=== PATIENT | female | born 1995 | race Native Hawaiian/Other Pacific Islander ===

== ENCOUNTER 2022-02-15 15:32 | Outpatient (CLI) | payer OTHER, SELFPAY | END 2022-02-15 15:33 | disposition home or self-care (01) | LOC: AMB 04-04 09:36 | PROVIDERS: Visit Provider Family Medicine | DX: S39.91XA Unspecified injury of abdomen, initial encounter (principal); S19.9XXA Unspecified injury of neck, initial encounter; S29.9XXA Unspecified injury of thorax, initial encounter; V43.62XA Car passenger injured in collision with other type car in traffic accident, initial encounter; Y92.413 State road as the place of occurrence of the external cause | CPT/HCPCS: A0425; A0429 ==

== ENCOUNTER 2022-02-15 15:51 | Emergency (ER) | payer OTHER, SELFPAY ==
[2022-02-15] VITALS (12 sets, daily range): BP systolic 93–147; BP diastolic 57–74; PULSE 96–126; RESP 12–24; TEMP 37.4; O2SAT 97–100; BMI 33.3
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
[2022-02-15 16:15] LABS: Basophils Absolute Auto 0.03 K/uL (0.00-0.30); Basophils Percent Auto 0.4 % (0.0-3.0); Eosinophils Absolute Auto 0.15 K/uL (0.00-0.50); Eosinophils Percent Auto 1.8 % (0.0-7.0); Hematocrit 33.8 % (33.0-51.0); Hemoglobin* 9.9 gm/dL (12.0-16.0); Lymphocytes Absolute Auto 2.35 K/uL (0.90-2.90); Lymphocytes Percent Auto 27.6 % (20-44); Mean Corpuscular HGB Conc 29 gm/dL (32-36); Mean Corpuscular Hemoglobin 20 pg (26-34); Mean Corpuscular Volume 68 fL (80-100); Monocytes Percent Auto 7.4 % (0.0-11.0); Neutrophils Absolute Auto 5.26 K/uL (1.7-7.0); Neutrophils Percent Auto 61.6 % (42.0-72.0); Platelet Count* 464 K/uL (140-440); RDW Coefficient of Variation % 17.2 % (11.5-15.5); Red Blood Count 4.97 m/uL (4.00-5.20); White Blood Count* 8.52 K/uL (4.50-11.00)
[2022-02-15 16:23] LABS: Slide Review Reflex No
[2022-02-15 16:29] LABS: Albumin* 4.4 g/dL (3.3-5.0); Chloride* 105 mmol/L (96-114); Potassium* 3.7 mmol/L (3.6-5.1); Sodium* 139 mmol/L (135-149)
[2022-02-15 16:31] LABS: Creatinine* 0.7 mg/dL (0.5-1.5); Estimated Glomerular Filt Rate 121 ml/min
[2022-02-15 16:32] LABS: Alanine Aminotransferase* 29 U/L (4-35); Alkaline Phosphatase* 95 U/L (40-150); Aspartate Amino Transferase* 26 U/L (12-35); Bilirubin Total* 0.1 mg/dL (0.1-1.5); Blood Urea Nitrogen* 9 mg/dL (5-24); Calcium* 9.1 mg/dL (8.4-10.6); Carbon Dioxide* 23 mmol/L (20-32); Glucose* 150 mg/dL (60-115); Total Protein* 8.2 g/dL (6.0-8.3)
[2022-02-15 16:44] LABS: Troponin I* < 0.01 ng/mL (0.01-0.04)
[2022-02-15] MEDS: ACETAMINOPHEN 500 MG TABLET 1000 MG PO (16:44)
--- NOTE | 2022-02-15 17:00 | ED.NURSE ---
was able to get in the w/c and was taken to the br. did void. ua was obtained. has pain with movement.
[2022-02-15 17:10] LABS: Appearance Urine Cloudy (Clear); Bilirubin Urine Negative (Negative); Blood Urine 3+ (Negative); Color Urine Yellow (Yellow); Glucose Urine Negative (Negative); Ketones Urine Negative (Negative); Leukocyte Esterase Urine 3+ (Negative); Nitrite Urine Negative (Negative); Protein Urine 2+ (Negative); Urobilinogen Urine 0.2 (0.2-1.0)
[2022-02-15 17:23] LABS: Bacteria Urine Many; RBC Urine 0-2 (0-2); Squamous Epithelial Cell Urine Moderate (None-Few); WBC Urine 25-50 (0-5)
--- NOTE | 2022-02-15 18:03 | ED.NURSE ---
was asking for something more for pain. dr jones informed. will not administer until more results are back-ct scan. is emotional and has been crying.
[2022-02-15] MEDS: KETOROLAC 15 MG/ML inj IVP (19:15)
[2022-02-15 19:21] LABS: Hemoglobin* 9.4 gm/dL (12.0-16.0)
[2022-02-15 19:54] LABS: SARS PCR* Negative SARS-CoV-2 (Negative)
== END 2022-02-15 20:27 | disposition home or self-care (01) ==
PROVIDERS: Emergency Provider Family Medicine
DX: D50.9 Iron deficiency anemia, unspecified (principal); S37.099A Other injury of unspecified kidney, initial encounter
CPT/HCPCS: 36415; 71260; 74177; 80053; 81001; 84484; 85018; 85025; 87086; 87186; 87635; 93005; 94761; 96374; 99284; 99285; 99291; A9270; G0390; J1885; Q9967